=== PATIENT | female | born 1960 | race Caucasian/White ===

== ENCOUNTER → 2021-09-11 06:34 | Outpatient (CLI) | payer OTHER, SELFPAY ==
--- NOTE | 2021-09-11 06:38 | NM_ITS ---
APPROVED REPORT Exam: Nuclear Stress Test Indication: chest pain..short of breath Patient Location: Outpatient Stress Tech: Dianna Lehman MD Tech:MALIK John RT(R)(N) Ht: 5 ft 4 in Wt: 226 lbs Bra Size: 44d HR: 87 bpm BP: 176/79 mmHg BSA: 2.06 m2 BMI: 38.7 History: chest pain..short of breath Procedure: Patient exercised on Rich protocol 5 minutes and sec, resting heart rate 87 bpm, resting blood pressure 176/79 mmHg, with exercise maximum heart rate achived was 153 bpm which is 96 % of the maximum predicted heart rate and blood pressure was 210/100 mmHg. Test was stopped due to soa. Patient has adequate exercise capacity, achieved 7.0 METs of workload on treadmill, the blood pressure response to exercise was Hypertensive. Electrocardiogram Resting electrocardiogram shows sinus rhythm, nonspecific ST-T changes, with exercise there is less than 1.[address] segment depression noted from the baseline EKG. The EKG portion of the exercise Myoview was nondiagnostic due to baseline abnormal EKG. Cardiac Stress and Resting SPECT Images: Cardiac Stress and Resting SPECT images were obtained using technetium 99m Myoview 31.6 mCi stress and 10.29 mCi at rest. Gated SPECT for analysis of segmental wall motion and calculation of the ejection fraction also done. Cardiac stress and resting SPECT images show uniform myocardial activity without segmental perfusion abnormality, computer derived ejection fraction is over 65% with no regional wall motion abnormality, right ventricle is normal size and contractility. Conclusion: 1. The EKG portion of the exercise Myoview is nondiagnostic due to baseline abnormal EKG, patient has adequate exercise capacity achieved 7 METS of workload on treadmill, the blood pressure response to exercise was hypertensive, there was no exercise-induced chest discomfort. 2. No scintigraphic evidence of reversible ischemia seen at this level of exercise, computer derived ejection fraction is over 65% with no regional wall motion abnormality, right ventricle is normal size and contractility. 3. Normal exercise Myoview study except for hypertensive blood pressure response. Electronically signed by : Geraldo Navarrete MD 09/11/2021 21:12:40
--- NOTE | 2021-09-11 09:23 | CA_ITS ---
APPROVED REPORT Exam: Exercise Treadmill Technologist: Dianna Lehman, Ht: 5 ft 4 in Wt: 226 lbs BSA: 2.06 m2 HR: 70 bpm BP: 176/79 mmHg Medical History Medications: Aspirin,,,,, Vitamin B12,,,,, Vitamin D3,,,,, Losartan HCTZ,,,,, Stress Test Details Test: Rich HR Resting HR: 87 bpm Max Heart Rate (APMHR): 160 bpm Max HR Achieved: 153 bpm Target HR (85% APMHR): 136 bpm % of APMHR: 95 Recovery HR: 88 bpm BP Resting BP: 174/86 mmHg Max BP: 210/100 mmHg Recovery BP: 173.0/71.0 mmHg ECG Clinical Exercise duration: 05:00 min Highest Stage Achieved: Exercise capacity: 7.0 METs Stress ECG Conclusion Test stopped due to: SOA Symptoms: SOA noted. Mild chest tightness. Arrhythmias/Ectopy: None. ST-T Changes: <1.5mm ST segment changes. Electronically signed by : Geraldo Navarrete MD 09/11/2021 20:29:40
== END ==
PROVIDERS: PCP Family Medicine; Visit Provider Urology
DX: R06.00 Dyspnea, unspecified (principal); R00.2 Palpitations; R07.9 Chest pain, unspecified; R42 Dizziness and giddiness; R94.31 Abnormal electrocardiogram [ECG] [EKG]; I10 Essential (primary) hypertension; K21.9 Gastro-esophageal reflux disease without esophagitis
CPT/HCPCS: 78452; 93017; 93306; A9502

== ENCOUNTER → 2021-10-02 08:15 | Outpatient (CLI) | payer OTHER, SELFPAY ==
--- NOTE | 2021-10-02 08:15 | US_ITS ---
PROCEDURE: US GALLBLADDER CLINICAL INDICATION: GERD COMPARISON: No exams were available for comparison FINDINGS: Pancreas: Pancreas is not well delineated due to overlying bowel gas. CT with pancreatic protocol may provide further evaluation if clinically desired. Liver: Unremarkable. There is appropriate direction of blood flow within a non dilated portal vein. Right kidney: Unremarkable appearing. No hydronephrosis. Gallbladder: No stones are evident. There is no gallbladder wall thickening. Common duct is normal in diameter. There is sludge present in the gallbladder. IMPRESSION: Negative gallbladder ultrasound. Poor visualization of the pancreas Dictated by: Cezar Gomez MD 10/02/2021 09:12 Cezar Gomez MD in [facility] 10/02/2021 09:12
== END ==
PROVIDERS: PCP Family Medicine; Visit Provider Nurse Practitioner Family
DX: R06.00 Dyspnea, unspecified (principal); R07.89 Other chest pain; K21.9 Gastro-esophageal reflux disease without esophagitis; I10 Essential (primary) hypertension
CPT/HCPCS: 76705

== ENCOUNTER → 2021-12-04 12:40 | Outpatient (CLI) | payer OTHER, SELFPAY ==
--- NOTE | 2021-12-04 12:48 | MM_ITS ---
PROCEDURE INFORMATION: Exam: US Left Breast, Complete MG Left Diagnostic Breast Tomosynthesis Exam date and time: 12/04/2021 12:48 PM Age: 61 years old Clinical indication: Patient recalled for further evaluation of questionable left breast asymmetries TECHNIQUE: Imaging protocol: Complete ultrasound of all four quadrants of the Left breast and the retroareolar regions, including ultrasound of the axilla when performed. Left Diagnostic tomosynthesis and 2D mammography including computer-aided detection (CAD) when performed. Unilateral or bilateral exam. COMPARISON: MG MM MAMMO DIGITAL EDITH SCREEN BILAT 11/01/2021 9:28 AM FINDINGS: MAMMOGRAPHY: Digital diagnostic spot compression views of the left breast and 90 degree lateral view of the left breast demonstrate normal overlapping fibroglandular structures without persistent mass or asymmetry identified. ULTRASOUND: Sonographic images of the left breast including the retroareolar region, all 4 quadrants and the axilla do not demonstrate any solid or cystic masses. No architectural distortion or acoustical shadowing. No skin thickening or axillary adenopathy. IMPRESSION: No mammographic or sonographic evidence of malignancy. Annual bilateral mammographic screening is recommended unless otherwise clinically indicated. ASSESSMENT: BI-RADS Category 1: Negative
== END ==
PROVIDERS: PCP Family Medicine; Visit Provider Family Medicine
DX: R92.8 Other abnormal and inconclusive findings on diagnostic imaging of breast (principal)
CPT/HCPCS: 76641; 77061; 77065; G0279

== ENCOUNTER → 2022-11-05 08:06 | Outpatient (CLI) | payer BC, SELFPAY ==
--- NOTE | 2022-11-05 08:26 | CT_ITS ---
FINAL REPORT TECHNIQUE: Axial imaging of the chest is obtained after the administration of contrast. 3-D MIP reformatted images were also obtained and reviewed per PE protocol. CLINICAL HISTORY: cp/sob, pts had covid twice FINDINGS: The pulmonary arteries are well filled. There is no evidence of pulmonary embolus. There is no aortic dissection or intimal flap. There is no mediastinal, hilar, or axillary lymphadenopathy. There is a 5 mm ground-glass nodule in the left upper lobe on image 35. A 5 mm right upper lobe nodule is seen on image 27. On image 37 is a 7 mm nodule in the right upper lobe. The lungs are otherwise clear. There is no pleural or pericardial effusion. Limited evaluation of the upper abdomen demonstrate fatty infiltration of the liver. There is no acute osseous abnormality. IMPRESSION: No acute abnormality. Bilateral subcentimeter pulmonary nodules are indeterminate. Recommend follow-up in 6-12 months. Reviewed, Interpreted and Dictated by Breanna Manning MD Transcribed by Jason Purdy Authenticated and [facility]
[2022-11-05 08:32] LABS: Blood Urea Nitrogen 20 mg/dl (7-17); Estimated Glomerular Filt Rate 85 ml/min (>60); GFR (African American) 103 ML/MIN (>60)
== END ==
PROVIDERS: PCP Family Medicine; Visit Provider Nurse Practitioner Family
DX: R06.00 Dyspnea, unspecified (principal); R07.89 Other chest pain
CPT/HCPCS: 36415; 71275; 82565; 84520; Q9967

== ENCOUNTER 2023-03-20 07:59 | Outpatient (CLI) | payer BC, SELFPAY ==
[2023-03-20 08:42] VITALS: BMI 39.4
[2023-03-20 09:01] LABS: Anion Gap 12.6 mEq/L (5-15); Blood Urea Nitrogen 18 mg/dl (7-17); Calcium 8.8 mg/dl (8.4-10.2); Carbon Dioxide 28 mmol/L (22.0-30.0); Chloride 102 mmol/L (98-107); Creatinine Clearance Estimated 96 mL/min (50-200); Estimated Glomerular Filt Rate 101 ml/min (>60); GFR (African American) 123 ML/MIN (>60); Glucose 101 mg/dl (74-100); Potassium 3.6 mmoL/L (3.5-5.1); Sodium 139 mmol/L (136-145)
[2023-03-20 09:15] VITALS: BP 166/78; PULSE 61; RESP 18; O2SAT 98
--- NOTE | 2023-03-20 09:15 | PC.NURSE ---
Arrived to CT room, pt supine on scan table. VSS, no C/O.
[2023-03-20 09:25] VITALS: BP 149/91; PULSE 66; RESP 18; O2SAT 98
--- NOTE | 2023-03-20 09:25 | PC.NURSE ---
Test complete. Pt tolerated well, no C/O, VSS. IV discontinued per radiology staff.
== END 2023-03-20 09:45 | disposition home or self-care (01) ==
PROVIDERS: PCP Family Medicine; Visit Provider Physician Assistant
DX: R06.00 Dyspnea, unspecified (principal); R07.89 Other chest pain; R42 Dizziness and giddiness; I70.0 Atherosclerosis of aorta; I10 Essential (primary) hypertension; R91.8 Other nonspecific abnormal finding of lung field; R94.31 Abnormal electrocardiogram [ECG] [EKG]; G47.33 Obstructive sleep apnea (adult) (pediatric)
CPT/HCPCS: 75574; 80048; Q9967

== ENCOUNTER 2024-03-02 07:11 | Outpatient (CLI) | payer OTHER, SELFPAY ==
--- NOTE | 2024-03-02 07:20 | CT_ITS ---
FINAL REPORT TECHNIQUE: Axial CT images were performed from the lung apices through the upper abdomen. Coronal and sagittal reformats were submitted. This study was performed with techniques to keep radiation doses as low as reasonably achievable (ALARA). Individualized dose reduction techniques using automated exposure control or adjustment of mA and/or kV according to the patient's size were employed. CLINICAL HISTORY: ABNORMAL FINDING ON DIAGNOSTIC IMAGING COMPARISON: 11/05/2022 FINDINGS: There is no axillary adenopathy. There is no hilar or mediastinal mass or adenopathy. Heart size is normal. There is no pericardial or pleural effusion. There is a calcified granuloma in the right lower lobe. There is fatty infiltration of the liver present. There is a left adrenal nodule, likely an adenoma, stable since the prior CT of October 2022. There are several less than 5 mm in size pulmonary nodules, with 1 in the posterior right upper lobe that measures 4 mm in size best seen on image #24, stable since the prior exam. IMPRESSION: Several less than 5 mm in size pulmonary nodules, as described above, stable since the prior CT of 11/05/2022. Would consider additional follow-up chest CT in 12 months. Left adrenal nodule, likely an adenoma, stable since the prior CT. Reviewed, Interpreted and Dictated by James Forrester III, MD Transcribed by Erica Marie Authenticated and [facility]
== END 2024-03-02 23:59 | disposition home or self-care (01) ==
PROVIDERS: PCP Family Medicine; Visit Provider Family Medicine
DX: R93.89 Abnormal findings on diagnostic imaging of other specified body structures (principal)
CPT/HCPCS: 71250

== ENCOUNTER 2024-07-02 10:08 | Outpatient (CLI) | payer OTHER, SELFPAY ==
--- NOTE | 2024-07-02 10:14 | NM_ITS ---
FINAL REPORT CLINICAL HISTORY: RUQ pain 10:45 am 8.01 mci tc choletec 2.1 mcg of cck no pain during cck FINDINGS: Sequential anterior projection images of the abdomen were obtained after the intravenous injection of 8.01 mCi technetium 99m Choletec. There is normal uptake of radiotracer by the liver. The bile ducts are visualized by 5 minutes. Gallbladder activity is seen by 25 minutes. Bowel activity is noted by 10 minutes. After 1 hour, 2.1 ?g of CCK was injected intravenously for calculation of gallbladder ejection fraction. The gallbladder ejection fraction is 13%, which is low, however nonspecific and can be seen with chronic cholecystitis. IMPRESSION: No evidence of cystic duct or bile duct obstruction. Gallbladder ejection fraction of 13%, which is low, however nonspecific and can be seen with chronic cholecystitis. Reviewed, Interpreted and Dictated by James Forrester III, MD Transcribed by Erica Marie Authenticated and [facility]
[2024-07-02] MEDS: SODIUM CHLORIDE 0.9% 10ML SYR (RAD ONLY) 10 ML IV (10:45)
[2024-07-02] MEDS: SINCALIDE 2.1 MCG in 0.9 % SODIUM CHLORIDE 50 ML 100 MCG IV (11:55)
[2024-07-02] MEDS: ISOTOPE CHOLETECH;1 DOSE (UP TO 15 MCI) IV (12:08)
== END 2024-07-02 23:59 | disposition home or self-care (01) ==
LOC: RAD 10:09
PROVIDERS: PCP Family Medicine; Visit Provider Surgery
DX: R10.11 Right upper quadrant pain (principal)
CPT/HCPCS: 78227; A9537; J2805